=== PATIENT | female | born 1955 | race African-American/Black ===

== ENCOUNTER 2017-07-23 09:22 | Emergency (ER) | payer OTHER ==
[2017-07-23 09:38] VITALS: BP 166/90; PULSE 68; TEMP 99.1; BMI 33.3
[2017-07-23] MEDS ORDERED: CYCLOBENZAPRINE HCL 5 MG TABLET PO ONE (09:39)
[2017-07-23] MEDS ORDERED: NAPROXEN 500 MG TABLET (FP) PO ONE (09:39)
[2017-07-23] MEDS ORDERED: NAPROXEN 500 MG TABLET (FP) ONE (09:40)
[2017-07-23] MEDS ORDERED: CYCLOBENZAPRINE HCL 10 MG TABLET (FP) ONE (09:40)
--- NOTE | 2017-07-23 09:46 | PDOC ---
History of Present Illness - General Chief Complaint: Back Pain Stated Complaint: LEFT LOWER BACK/HIP PAIN Time Seen by Provider: 07/23/17 09:25 History Source: Patient Exam Limitations: No Limitations - History of Present Illness Initial Comments: 07/23/17 09:40 62 year old female with PMH HTN, DM p/w left lower back pain. 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 The patient was lifting objects but does not recall what she lifted that was particularly heavy. For the last 2 days, noted that she was having left lower back pain worsen with movements (flexion and extension) of her back. Denies any numbness, weakness, urinary/bowel complaints. Has been taking tylenol but with minimal relief. Past History - Past Medical History Allergies/Adverse Reactions: Allergies Allergy/AdvReac Type Severity Reaction Status Date / Time Penicillins Allergy Unknown Verified 07/23/17 09:31 Home Medications: Ambulatory Orders Metoprolol Succinate [Toprol Xl -] 12.5 mg PO DAILY 10/08/14 metFORMIN HCL [Metformin HCl] 500 mg PO BID 10/08/14 Acetaminophen 650 mg PO PRN PRN 07/23/17 Cyclobenzaprine HCl [Flexeril 10 mg] 10 mg PO Q8H PRN #21 tablet 07/23/17 Naproxen 500 mg PO BID PRN #14 tablet 07/23/17 Oxycodone HCl/Acetaminophen [Percocet 5-325 mg Tablet] 1 tab PO Q8H PRN #5 tablet MDD 3 07/23/17 COPD: No Diabetes: Yes HTN: Yes - Suicide/Smoking/Psychosocial Hx Smoking History: Never smoked Have you smoked in the past 12 months: No Hx Alcohol Use: No Drug/Substance Use Hx: No Substance Use Type: None Review of Systems - Review of Systems Able to Perform ROS?: Yes Comments:: 07/23/17 09:44 GENERAL/CONSTITUTIONAL: No fever, weakness. HEAD, EYES, EARS, NOSE AND THROAT: No change in vision. No ear pain or discharge. No sore throat. CARDIOVASCULAR: No chest pain or shortness of breath. RESPIRATORY: No cough, wheezing, or hemoptysis. GASTROINTESTINAL: No abdominal pain, nausea, vomiting, diarrhea, or decreased PO intolerance. GENITOURINARY: No dysuria, frequency, or change in urination. MUSCULOSKELETAL: No joint or muscle swelling or pain. + lower back pain. SKIN: No rash NEUROLOGIC: No headache, vertigo, loss of consciousness, or change in strength/ sensation. ENDOCRINE: No increased thirst. No abnormal weight change. HEMATOLOGIC/LYMPHATIC: No anemia, easy bleeding, or history of blood clots. ALLERGIC/IMMUNOLOGIC: No hives or skin allergy. *Physical Exam - Vital Signs Last Vital Signs Temp Pulse Resp BP Pulse Ox 99.1 F 68 16 166/90 99 07/23/17 09:24 07/23/17 09:24 07/23/17 09:24 07/23/17 09:24 07/23/17 09:24 - Physical Exam Comments: 07/23/17 09:45 GENERAL: Awake, alert, and fully oriented, in no acute distress. HEAD: No signs of trauma EYES: EOMI, sclera anicteric, conjunctiva clear ENT: Auricles normal inspection, hearing grossly normal, nares patent, NECK: Normal ROM, supple BACK: no spinal tenderness or stepoffs appreciated. TTP left lower back ( muscular). Reproducible with flexion and extension of the back. EXTREMITIES: Normal range of motion, no edema. No clubbing or cyanosis. No cords, erythema, or tenderness NEUROLOGICAL: Cranial nerves II through XII grossly intact. Normal speech, normal gait SKIN: Warm, Dry, normal turgor, no rashes or lesions noted. Medical Decision Making - Medical Decision Making 07/23/17 09:46 Vital Signs Temp Pulse Resp BP Pulse Ox 99.1 F 68 16 166/90 99 07/23/17 09:24 07/23/17 09:24 07/23/17 09:24 07/23/17 09:24 07/23/17 09:24 I suspect that this is a lower back strain. Does not appear clinically to be a UTI. Pain control and muscle relaxant and reassess. 07/23/17 11:27 Radiographs reviewed, pending official radiology read of pelvis and lumbar spine. Arthritic changes but no fratures. Pt was given naproxen and flexeril with some relief. Pt was then given percocet with significant pain relief. Pt works at [employer]. I advised her to take caution when working. Activity as tolerated. Likely lower back strain. Pt's son will drive patient home. I discussed the physical exam findings, ancillary test results and final diagnoses with the patient. I answered all of the patient's questions. The patient was satisfied with the care received and felt comfortable with the discharge plan and treatment plan. The patient will call their primary care physician within 24 hours to arrange follow-up and will return to the Emergency Department with any new, persistant or worsening symptoms. *DC/Admit/Observation/Transfer Diagnosis at time of Disposition: Lower back pain Qualifiers: Chronicity: unspecified Back pain laterality: left Sciatica presence: without sciatica Qualified Code(s): M54.5 - Low back pain - Discharge Dispostion Disposition: HOME Condition at time of disposition: Improved Decision to Admit order: No - Prescriptions Prescriptions: Cyclobenzaprine HCl [Flexeril 10 mg] 10 mg PO Q8H PRN #21 tablet PRN Reason: Back Spasm Naproxen 500 mg PO BID PRN #14 tablet PRN Reason: Back Pain Oxycodone HCl/Acetaminophen [Percocet 5-325 mg Tablet] 1 tab PO Q8H PRN #5 tablet MDD 3 PRN Reason: Back Pain - Referrals Referrals: Venkat Monk MD [Primary Care Provider] - - Patient Instructions Printed Discharge Instructions: DI for Back Spasm Additional Instructions: You likely have a lower back spasm. It will likely take several days before symptoms improve. You may use heating packs several minutes a day for several times a day. Activity as tolerated. Try to avoid lifting heavy objects. Use your knees and not your back. Take 500 mg naproxen every 12 hours as needed for pain. For muscle spasm, you can take 10 mg flexeril every 8 hours as needed. For severe pain, take a tablet of percocet every 8 hours as needed. However, do not drink or drive on this medication as this medication may make you drowsy. - Post Discharge Activity Forms/Work/School Notes: Back to Work
[2017-07-23] MEDS ORDERED: oxyCODONE HCL 5 MG TABLET PO ONE (10:36)
== END 2017-07-23 12:38 | disposition home or self-care (01) ==
LOC: FER 09:22
DX: M54.5 Low back pain (principal); Z79.84 Long term (current) use of oral hypoglycemic drugs; E11.9 Type 2 diabetes mellitus without complications; I10 Essential (primary) hypertension
CPT/HCPCS: 72100-TC-FY; 73523-TC-FY; 99282-25